=== PATIENT | male | born 1980 | race Caucasian/White ===

== ENCOUNTER → 2016-12-13 | Outpatient (CLI) | payer BC ==
[~2016-12-13] VITALS: Ht 172.7 cm; Wt 77.1 kg
[~2016-12-13] MED LIST: LOSA50TA20 PO; NS 1,000 ML IV SCH; OMEP20CA3 PO; PROPOFOL 200 MG/20 ML VIAL As Ordered ONE
--- NOTE | 2016-12-13 13:44 | ROOR ---
Patient Name: Srikanth Garza Procedure Date: 12/13/2016 1:29 PM Date of : 1980 Age: 36 Room: [facility] Gender: Male Note Status: Finalized Procedure: Colonoscopy Indications: Abdominal pain in the left lower quadrant, Change in bowel habits, Clinically significant diarrhea of unexplained origin, --resolved Providers: Jono STEVENS MD Referring MD: Mel GLEASON DO Requesting Provider: Medicines: Monitored Anesthesia Care Complications: No immediate complications. Procedure: Pre-Anesthesia Assessment: - The heart rate, respiratory rate, oxygen saturations, blood pressure, adequacy of pulmonary ventilation, and response to care were monitored throughout the procedure. The Colonoscope was introduced through the anus and advanced to 5 cm into the ileum. The colonoscopy was performed without difficulty. The patient tolerated the procedure well. The quality of the bowel preparation was good. Findings: The perianal and digital rectal examinations were normal. (Exam: Complete, Prep: Good or Excellent.) The terminal ileum appeared normal. The colon (entire examined portion) appeared normal. Small Internal Hemorrhoids. Impression: - The terminal ileum was normal. - The entire colon is normal. - Small Internal Hemorrhoids. - No specimens collected. Recommendation: - Use fiber, for example Citrucel, Fibercon, Konsyl or Metamucil. Jono Stevens MD Jono STEVENS MD 12/13/2016 1:44:36 PM This report has been signed electronically. Number of Addenda: 0 Note Initiated On: 12/13/2016 1:29 PM Estimated Blood Loss: Estimated blood loss: none.
[2016-12-13 14:05] VITALS: BP 112/63
== END | disposition home or self-care (01) ==
LOC: M OPP 11:25
PROVIDERS: ATTEND Internal Medicine Gastroenterology
DX: K64.8 Other hemorrhoids (principal); I10 Essential (primary) hypertension; K21.9 Gastro-esophageal reflux disease without esophagitis; F17.210 Nicotine dependence, cigarettes, uncomplicated; Z79.899 Other long term (current) drug therapy; Z88.1 Allergy status to other antibiotic agents

== ENCOUNTER → 2017-03-06 | Outpatient (CLI) | payer BC ==
[~2017-03-06] MED LIST changes: -NS 1,000 ML IV SCH; -PROPOFOL 200 MG/20 ML VIAL As Ordered ONE
--- NOTE | 2017-03-06 09:57 | REP ---
Clinical: Wheezing and high risk factors . Comparison: None . Technique: PA and lateral. Findings: The mediastinum and cardiac silhouette are normal. The lung marrero are clear and without acute consolidation, effusion, or pneumothorax. The skeletal structures are intact and normal. Impression: No acute cardiopulmonary process. If the patient remains symptomatic consider chest CT for further investigation. Signed by Marcial Carlos MD 03/06/2017 09:48 A
== END ==
LOC: M SMT 09:10
PROVIDERS: ATTEND Family Medicine
DX: R06.2 Wheezing (principal); F17.218 Nicotine dependence, cigarettes, with other nicotine-induced disorders

== ENCOUNTER → 2019-04-20 | Outpatient (CLI) | payer BC ==
[~2019-04-20] MED LIST changes: -LOSA50TA20 PO; +LOSA50TA88 PO; -OMEP20CA3 PO; +OMEP20CA4 PO
[2019-04-20 09:28] LABS: ALBUMIN 3.7 GM/DL (3.2-5.2); ALT/SGPT 23 U/L (12-78); BILIRUBIN,TOTAL 0.7 MG/DL (0.2-1.0); BLOOD UREA NITROGEN 9 MG/DL (7-18); CALCIUM LEVEL 9.2 MG/DL (8.5-10.1); CARBON DIOXIDE LEVEL 27 MEQ/L (21-32); CHLORIDE LEVEL 107 MEQ/L (98-107); CHOLESTEROL LEVEL 126 MG/DL (<200); CHOLESTEROL RISK RATIO 2.032 (<5); CREATININE FOR GFR 0.77 MG/DL (0.70-1.30); FREE T4 1.01 NG/DL (0.76-1.46); GLOMERULAR FILTRATION RATE > 60.0 (>60); GLUCOSE, FASTING 93 MG/DL (70-100); HDL CHOLESTEROL 62 MG/DL (>40); LDL CHOLESTEROL 55 MG/DL (<100); NON-HDL-C 64 MG/DL; POTASSIUM SERUM 4.2 MEQ/L (3.5-5.1); SODIUM LEVEL 141 MEQ/L (136-145); TOTAL PROTEIN 7.1 GM/DL (6.4-8.2); TRIGLYCERIDES LEVEL 47 MG/DL (<150)
== END ==
LOC: M WUC 08:15
PROVIDERS: ATTEND Physician Assistant
DX: I10 Essential (primary) hypertension (principal)

== ENCOUNTER 2022-09-07 10:40 | Emergency (ER) | payer BC, OTHER ==
[~2022-09-07 10:40] MED LIST changes: +LOSA50TA28 PO; -LOSA50TA88 PO; +OMEP1CAP73 PO; -OMEP20CA4 PO
[2022-09-07 14:09] VITALS: BP 135/82
== END 2022-09-07 14:10 | disposition home or self-care (01) ==
LOC: M ED 10:40
DX: F43.0 Acute stress reaction (principal); Z63.0 Problems in relationship with spouse or partner; I10 Essential (primary) hypertension; F17.200 Nicotine dependence, unspecified, uncomplicated; Z88.1 Allergy status to other antibiotic agents; Z79.811 Long term (current) use of aromatase inhibitors; Z79.899 Other long term (current) drug therapy

== ENCOUNTER → 2023-03-12 | Outpatient (CLI) | payer MEDICAID | LOC: M OUTALCOH 07:40 | PROVIDERS: ATTEND Psychiatry & Neurology Psychiatry | DX: Z53.9 Procedure and treatment not carried out, unspecified reason (principal) ==

== ENCOUNTER 2023-03-22 15:57 | Outpatient (RCR) | payer MEDICAID | END 2023-04-01 | LOC: M OUTALCOH 15:57 | PROVIDERS: ATTEND Psychiatry & Neurology Psychiatry | DX: Z03.89 Encounter for observation for other suspected diseases and conditions ruled out (principal); Z72.0 Tobacco use ==